=== PATIENT | female | born 1960 | race Caucasian/White ===

== ENCOUNTER 2024-08-03 14:21 | Inpatient (IN) | payer MEDICAID, OTHER ==
[~2024-08-03] VITALS: Ht 157.5 cm; Wt 68.8 kg
[2024-08-03 15:01] LABS: Basophils # (auto) 0 10 ^3/uL (0-0.2); Basophils % (auto) 0.8 % (0.0-2.0); Eosinophils # (auto) 0.1 10 ^3/uL (0-0.8); Eosinophils % (auto) 1.7 % (0.0-7.0); Hematocrit 33.9 % (36.0-46.0); Hemoglobin 11.8 g/dL (12.2-16.2); Lymphocytes % (auto) 17.6 % (10.0-50.0); Mean Corpuscular Hemoglobin 29.9 pg (28.0-32.0); Mean Corpuscular Hgb Conc. 34.9 g/dL (32.0-36.0); Mean Corpuscular Volume 85.7 fL (80.0-100.0); Monocytes # (auto) 0.3 10 ^3/uL (0-1.3); Monocytes % (auto) 5.3 % (0.0-12.0); Neutrophils # (auto) 4.1 10 ^3/uL (1.6-8.6); Neutrophils % (auto) 74.6 % (37.0-80.0); Nucleated Red Blood Cells % 0.1 %; Platelet Count (auto) 229 10^3/uL (140-450); Red Blood Cells 3.96 10^6/uL (4.0-5.20); Red Cell Distribution Width 14.1 % (11.8-14.3); White Blood Cell 5.5 10^3/uL (4.4-10.8)
[2024-08-03 15:14] LABS: Alanine Aminotransferase 12 U/L (7-40); Albumin 4.4 g/dL (3.2-4.8); Alkaline Phosphatase 63 U/L (46-116); Anion Gap 12 (5-15); Aspartate Aminotransferase 9 U/L (13-40); BUN/Creatinine Ratio 35.4 (10.0-20.0); Bilirubin, Total 0.5 mg/dL (0.2-1.0); Blood Urea Nitrogen 28 mg/dL (9-23); Calcium 9.8 mg/dL (8.7-10.4); Carbon Dioxide 22 mmol/L (20-31); Chloride 108 mmol/L (98-107); Glucose 176 mg/dL (74-106); Potassium 4.4 mmol/L (3.5-5.1); Sodium 142 mmol/L (136-145); Total Protein 6.8 g/dL (5.7-8.2)
[2024-08-03 16:42] LABS: Urine Bacteria MANY /hpf (None Seen); Urine Blood Negative /uL (Negative); Urine Budding Yeast LOADED /hpf (None Seen); Urine Clarity Clear (Clear); Urine Color Light-Yellow (Yellow); Urine Mucus FEW (None Seen); Urine Protein, UAD Negative (Negative); Urine Specific Gravity 1.029 (1.001-1.035); Urine Urobilinogen Normal (Negative); Urine WBC 10 /hpf (0 - 5)
[2024-08-03] MEDS: cefTRIAXone 1GM/50ML D5W 50 ML IV ONE (18:31)
[2024-08-03] MEDS: ASPirin 81 mg TAB PO ONE (19:04)
[2024-08-03] MEDS ORDERED: DEXTROSE (50%) 50ML SYRG IV PRN (21:00)
[2024-08-03] MEDS: ATORVASTATIN 20 MG TAB PO ONE (21:00)
[2024-08-03 21:33] LABS: Amphetamine Screen, Urine Neg (NEGATIVE); Barbiturate Scree,Urine Neg (NEGATIVE); Benzodiazephine Screen, Urine Neg (NEGATIVE); Cocaine Screen, Urine Neg (NEGATIVE); Opiate Scree,Urine Neg (NEGATIVE)
[2024-08-03 21:34] LABS: Cannabinoid Screen, Urine Neg (NEGATIVE); Phencyclidine Screen, Urine Neg (NEGATIVE)
[2024-08-03 22:11] LABS: INR 1.11 (0.9-1.15); Partial Thromboplastin Time 27.2 SEC (24.5-34.5); Prothrombin Time 11.7 sec (9.3-11.8)
[2024-08-03] MEDS: INSULIN LANTUS (GLARGINE) 1 /0.01ml (100units/ml) SC SCH (22:15)
[2024-08-03] MEDS: LISINOPRIL 5 MG TAB PO ONE (22:15)
[2024-08-03] MEDS ORDERED: ACETAMINOPHEN 500 MG TAB PO PRN (22:30)
[2024-08-03] MEDS ORDERED: MORPHINE SULFATE INJ 2 MG/ml SYRG IV PRN (22:30)
[2024-08-04] VITALS (13 sets, daily range): BP systolic 110–157; BP diastolic 55–81; PULSE 75–110; RESP 13–20; TEMP 97.7–98.4; O2SAT 96–99
[2024-08-04] MEDS: InsuLIN REG 1unit/0.01ml Soln (100units/ml) SC SCH
[2024-08-04] MEDS: ACCU-CHEK COMFORT CURVE STRIP VI SCH (00:14)
[2024-08-04] MEDS ORDERED: LISI-275 PO (00:51)
[2024-08-04] MEDS ORDERED: METF-372 PO (00:51)
[2024-08-04 07:11] LABS: Anion Gap 7 (5-15); Calcium 9.7 mg/dL (8.7-10.4); Carbon Dioxide 26 mmol/L (20-31); Chloride 111 mmol/L (98-107); Potassium 4.4 mmol/L (3.5-5.1); Sodium 144 mmol/L (136-145)
[2024-08-04 07:16] LABS: Glucose 127 mg/dL (74-106); Triglycerides 125 mg/dL (< 150)
[2024-08-04 07:17] LABS: BUN/Creatinine Ratio 34.2 (10.0-20.0); Blood Urea Nitrogen 26 mg/dL (9-23); LDL Cholesterol 90 mg/dL (< 100)
[2024-08-04 07:18] LABS: Cholesterol 154 mg/dL (< 200); HDL Cholesterol 44 mg/dL (40-59)
[2024-08-04 07:44] LABS: Basophils # (auto) 0 10 ^3/uL (0-0.2); Basophils % (auto) 1.1 % (0.0-2.0); Eosinophils # (auto) 0.2 10 ^3/uL (0-0.8); Eosinophils % (auto) 3.6 % (0.0-7.0); Hematocrit 32.1 % (36.0-46.0); Hemoglobin 11.4 g/dL (12.2-16.2); Lymphocytes # (auto) 1.2 10 ^3/uL (0.4-5.4); Lymphocytes % (auto) 28.6 % (10.0-50.0); Mean Corpuscular Hemoglobin 30.7 pg (28.0-32.0); Mean Corpuscular Hgb Conc. 35.6 g/dL (32.0-36.0); Mean Corpuscular Volume 86.2 fL (80.0-100.0); Monocytes # (auto) 0.3 10 ^3/uL (0-1.3); Monocytes % (auto) 6.1 % (0.0-12.0); Neutrophils # (auto) 2.5 10 ^3/uL (1.6-8.6); Neutrophils % (auto) 60.6 % (37.0-80.0); Nucleated Red Blood Cells % 0.1 %; Platelet Count (auto) 201 10^3/uL (140-450); Red Blood Cells 3.72 10^6/uL (4.0-5.20); Red Cell Distribution Width 14.1 % (11.8-14.3); White Blood Cell 4.1 10^3/uL (4.4-10.8)
[2024-08-04] MEDS ORDERED: ASPirin 81 mg TAB PO ONE (10:00)
[2024-08-04] MEDS: ASPirin 81 mg TAB PO SCH (10:00)
[2024-08-04] MEDS: IODIXANOL 320MG/ML 100ML BTL IV ONE ×3 (10:30→11:46)
[2024-08-04] MEDS: fentaNYL CITRATE 100 MCG/2 ML VL ONE (11:22)
[2024-08-04] MEDS: HEPARIN SODIUM (PORCINE) 5000 UNITS/ML 1ML VIAL ONE (11:23)
[2024-08-04] MEDS: LIDOCAINE 2%HCL (LOCAL ANESTH.) INJ 20ML MDV ONE (11:23)
[2024-08-04] MEDS: VERAPAMIL 2.5MG/ML INJ 2ML VIAL IV ONE (11:23)
[2024-08-04] MEDS: MIDAZOLAM HCL 2MG/2ML 2ml VIAL (1mg/ml) ONE (11:23)
[2024-08-04] MEDS: SODIUM CHL 0.9% 50 ML ONE (11:23)
[2024-08-04] MEDS: ANGIOMAX 250 MG VIAL IV ONE (11:24)
[2024-08-04] MEDS: CLOPIDOGREL BISULFATE 75 MG TAB ONE (11:47)
[2024-08-04] MEDS: ASPirin 325 MG TAB ONE (11:47)
[2024-08-04] MEDS: LISINOPRIL 5 MG TAB PO SCH (13:28)
[2024-08-04] MEDS: cefTRIAXone 1GM/50ML D5W 50 ML IV SCH (13:28)
[2024-08-04] MEDS: ATORVASTATIN 20 MG TAB PO SCH (21:31)
[2024-08-04] MEDS: METOPROLOL TARTRATE 25 MG TAB PO SCH (21:31)
[2024-08-05 01:00] VITALS: BP 111/58; PULSE 73; RESP 20; TEMP 98; O2SAT 98
[2024-08-05 05:00] VITALS: BP 133/68; PULSE 83; RESP 18; TEMP 98.5; O2SAT 91
[2024-08-05 07:30] LABS: Basophils # (auto) 0.1 10 ^3/uL (0-0.2); Basophils % (auto) 1.2 % (0.0-2.0); Chloride 109 mmol/L (98-107); Eosinophils # (auto) 0.1 10 ^3/uL (0-0.8); Eosinophils % (auto) 2.2 % (0.0-7.0); Hemoglobin 11.4 g/dL (12.2-16.2); Lymphocytes % (auto) 18.7 % (10.0-50.0); Mean Corpuscular Hemoglobin 30.5 pg (28.0-32.0); Mean Corpuscular Hgb Conc. 35.6 g/dL (32.0-36.0); Mean Corpuscular Volume 85.7 fL (80.0-100.0); Monocytes # (auto) 0.4 10 ^3/uL (0-1.3); Monocytes % (auto) 6.9 % (0.0-12.0); Neutrophils # (auto) 3.7 10 ^3/uL (1.6-8.6); Nucleated Red Blood Cells % 0.1 %; Platelet Count (auto) 213 10^3/uL (140-450); Potassium 3.8 mmol/L (3.5-5.1); Red Blood Cells 3.73 10^6/uL (4.0-5.20); Red Cell Distribution Width 14.2 % (11.8-14.3); Sodium 141 mmol/L (136-145); White Blood Cell 5.2 10^3/uL (4.4-10.8)
[2024-08-05 07:31] LABS: Anion Gap 8 (5-15); Calcium 9.5 mg/dL (8.7-10.4); Carbon Dioxide 24 mmol/L (20-31)
[2024-08-05 07:36] LABS: BUN/Creatinine Ratio 29.6 (10.0-20.0); Blood Urea Nitrogen 21 mg/dL (9-23); Glucose 121 mg/dL (74-106)
[2024-08-05 08:00] VITALS: PULSE 79; PULSE 82; RESP 16; O2SAT 100
[2024-08-05 08:47] VITALS: BP 114/59; PULSE 79; RESP 16; TEMP 98.2; O2SAT 100
[2024-08-05] MEDS: CLOPIDOGREL BISULFATE 75 MG TAB PO SCH (08:47)
[2024-08-05] MEDS ORDERED: CLOP75TA28 PO (11:01)
[2024-08-05] MEDS ORDERED: LEVO500T91 PO ×2 (11:01→13:27)
[2024-08-05] MEDS ORDERED: ASPI1TAB20 PO (11:01)
[2024-08-05] MEDS ORDERED: METO25TA93 PO ×2 (11:01→13:27)
[2024-08-05] MEDS ORDERED: ATOR-507 PO (11:01)
[2024-08-05 11:29] VITALS: BP 114/54; PULSE 70; RESP 17; TEMP 98.3; O2SAT 98
[2024-08-05 11:37] VITALS: BP 114/59; PULSE 79; TEMP 36.8
[2024-08-05] MEDS ORDERED: ASPI1TAB19 PO (13:27)
[2024-08-05] MEDS ORDERED: CLOP75TA70 PO (13:27)
[2024-08-05] MEDS ORDERED: ATOR20TA50 PO (13:27)
== END 2024-08-05 15:15 | disposition home or self-care (01) | DRG 175 ==
LOC: ER 14:26 → TELE-EAST 22:15 → TELE 22:15 → TELE-EAST 23:46
PROVIDERS: ADMIT Internal Medicine; ATTEND Internal Medicine
PROC: 0270366 Dilation of Coronary Artery, One Artery, Bifurcation, with Three Drug-eluting Intraluminal Devices, Percutaneous Approach (ICD-10-PCS; principal; 2024-08-04)
PROC: 4A023N7 Measurement of Cardiac Sampling and Pressure, Left Heart, Percutaneous Approach (ICD-10-PCS; 2024-08-04)
PROC: B211YZZ Fluoroscopy of Multiple Coronary Arteries using Other Contrast (ICD-10-PCS; 2024-08-04)
DX: I25.110 Atherosclerotic heart disease of native coronary artery with unstable angina pectoris (principal); D63.8 Anemia in other chronic diseases classified elsewhere; E11.9 Type 2 diabetes mellitus without complications; I10 Essential (primary) hypertension; N30.00 Acute cystitis without hematuria; E78.5 Hyperlipidemia, unspecified; Z82.49 Family history of ischemic heart disease and other diseases of the circulatory system; Z86.73 Personal history of transient ischemic attack (TIA), and cerebral infarction without residual deficits; Z87.891 Personal history of nicotine dependence; Z79.82 Long term (current) use of aspirin; Z83.3 Family history of diabetes mellitus; Z79.84 Long term (current) use of oral hypoglycemic drugs
CPT/HCPCS: 36415; 71045; 80048; 80053; 80061; 80307; 81001; 82306; 82607; 82962; 83036; 83880; 84443; 84484; 85025; 85610; 85730; 87086; 92928; 93005; 93306; 93458; 99152; G0378; J2250; Q9967